=== PATIENT | female | born 1950 | race Caucasian/White ===

== ENCOUNTER 2020-03-10 14:27 | Observation (INO) | payer OTHER, MEDICAID, SELFPAY ==
[~2020-03-10] VITALS: Ht 162.6 cm; Wt 65.3 kg
--- NOTE | 2020-03-10 14:30 | NUR ---
PT BIB ALS TO ER BED 1
--- NOTE | 2020-03-10 14:38 | NUR ---
DR JIMÉNEZ AT BEDSIDE EVALUATING PT.
--- NOTE | 2020-03-10 14:38 | NUR ---
HECTOR FROM [facility] FOR L FOOT PAIN/SWELLING , PT AWAKE , ALERT, AFIBRILE , PAIN ON LEFT FOOT UPON MOVEMENT. ORTHOPEDIC HARDWARE TO L FOOT PMH- HTN, DM, HLD, DE, SCHIZO, ANXIETY, SEIZURE, COPD, IBS,
[2020-03-10 14:40] VITALS: BP 147/79
--- NOTE | 2020-03-10 15:03 | NUR ---
JOANNA DENG AT BEDSIDE DOIN EKG.
--- NOTE | 2020-03-10 15:10 | NUR ---
XRAY AT BEDSIDE.
[2020-03-10] MEDS ORDERED: KETOROLAC 30 MG/ML VIAL IVP ONE (15:15)
--- NOTE | 2020-03-10 15:20 | NUR ---
PT COMFORTABLE IN BED SIDE RAILS UP X1 AND LOCK.
[2020-03-10 15:25] LABS: BASOPHILS # (AUTO) 0.1 K/uL (0.00-0.22); BASOPHILS % (AUTO) 0.6 % (0.0-2.0); EOSINOPHILS # (AUTO) 0.1 K/uL (0-0.4); EOSINOPHILS % (AUTO) 1.5 % (0.0-4.0); HEMATOCRIT 36.8 % (36-48); HEMOGLOBIN 12.3 g/dL (12.0-16.0); LYMPHOCYTES # (AUTO) 0.9 K/uL (2.5-16.5); LYMPHOCYTES % (AUTO) 9.7 % (20.5-51.1); MEAN CORPUSCULAR HEMOGLOBIN 30 pg (27-31); MEAN CORPUSCULAR HGB CONC 33 g/dL (33-37); MEAN CORPUSCULAR VOLUME 88.9 fL (80-94); MONOCYTES # (AUTO) 0.6 K/uL (0.8-1.0); MONOCYTES % (AUTO) 6.7 % (1.7-9.3); NEUTROPHILS # (AUTO) 7.6 K/uL (1.8-7.7); NEUTROPHILS % (AUTO) 81.5 % (42.2-75.2); PLATELET COUNT (AUTO) 295 K/uL (140-450); RED BLOOD CELL COUNT(AUTO) 4.14 MIL/uL (4.20-5.40); RED CELL DISTRIBUTION WIDTH 13.1 % (11.6-13.7); WHITE BLOOD COUNT (AUTO) 9.3 K/uL (4.8-10.8)
[2020-03-10 15:40] LABS: ALBUMIN 3.4 g/dL (3.4-5.0); ANION GAP 13.2 (8-16); CARBON DIOXIDE 26.9 mmol/L (21-32); POTASSIUM 4.1 mmol/L (3.5-5.1); TOTAL BILIRUBIN 0.3 mg/dL (0.0-1.0)
[2020-03-10] MEDS ORDERED: LEVOFLOXACIN 500 MG/D5W PREMIX 100 ML IV ONE (15:40)
[2020-03-10] MEDS ORDERED: GABA-636 PO (15:48)
[2020-03-10] MEDS ORDERED: QUET300T1 PO (15:51)
[2020-03-10] MEDS ORDERED: SERT25TA PO (15:53)
--- NOTE | 2020-03-10 15:53 | NUR ---
resident at bedside evaluating pt.
[2020-03-10] MEDS ORDERED: BUS5 PO (15:54)
[2020-03-10] MEDS ORDERED: OLME20TA11 PO (15:56)
[2020-03-10] MEDS ORDERED: ALEN70TA9 PO (15:58)
[2020-03-10] MEDS ORDERED: ATOR10TA PO (16:00)
[2020-03-10] MEDS ORDERED: LEVE250T1 PO (16:05)
[2020-03-10] MEDS ORDERED: ABI10 PO (16:07)
[2020-03-10] MEDS ORDERED: NACL 0.9% 1,000 ML IV SCH (16:09)
[2020-03-10] MEDS ORDERED: SITA100T8 PO (16:09)
[2020-03-10] MEDS ORDERED: HYDROcodone/APAP 5/325 MG 1 TAB TAB PO PRN (16:10)
[2020-03-10] MEDS ORDERED: VILA10TA PO (16:10)
[2020-03-10] MEDS ORDERED: ACETAMINOPHEN 325 MG TAB PO PRN (16:10)
[2020-03-10] MEDS ORDERED: DOCUSATE SODIUM 100 MG GELCAP PO PRN (16:10)
[2020-03-10] MEDS ORDERED: ONDANSETRON 4 MG/2 ML VIAL IM/IVP PRN (16:10)
[2020-03-10] MEDS ORDERED: LEVO0.124 PO (16:12)
[2020-03-10] MEDS ORDERED: LAM25 PO (16:15)
[2020-03-10 16:57] LABS: FREE T4 (FREE THYROXINE) 1.05 ng/dL (0.76-1.46); MAGNESIUM 1.8 mg/dL (1.8-2.4); PHOSPHORUS 3.8 mg/dL (2.5-4.9); THYROID STIMULATING HORMONE 2.53 uIU/mL (0.34-3.74)
[2020-03-10] MEDS ORDERED: MORPHINE SULFATE 4 MG/ML SYR IVP PRN (17:40)
[2020-03-10] MEDS ORDERED: ONDANSETRON 4 MG/2 ML VIAL IVP PRN (17:40)
--- NOTE | 2020-03-10 17:43 | NUR ---
PT COMFORTABLE IN BED WITH STABLE V/S , SIDE RAILS UP X1 AND LOCK.
[2020-03-10] MEDS ORDERED: DEXTROSE 50% 50 ML SYR IVP PRN (17:50)
[2020-03-10] MEDS ORDERED: CLINDAMYCIN 600 MG in DEXTROSE 5% 50 ML IV ONE (18:00)
--- NOTE | 2020-03-10 18:00 | NUR ---
PT SITTING IN BED COMFORTABLY EATING DINNER NO COMPLAINT AT THIS TIME.
--- NOTE | 2020-03-10 18:30 | NUR ---
RECEIVED PT FROM ER NURSE JOS EELIAS. PT IN STABLE CONDITION AT THIS TIME. WILL ENDORSE FOR ADMISSION TO SALES ORDER SPECIALIST.
--- NOTE | 2020-03-10 18:31 | NUR ---
Patient will be admitted to care of Dr Fernando. Admited to M/S. Will go to room 122B. Belongings list completed. Report to Malena Camacho.
[2020-03-10] MEDS: HYDROcodone/APAP 5/325 MG 1 TAB TAB PO PRN ×2 (18:47→21:24)
[2020-03-10 19:05] VITALS: BP 199/105
--- NOTE | 2020-03-10 19:05 | NUR ---
RECEIVED PATIENT FROM AM SHIFT NURSE FOR CONTINUITY OF CARE. REPORTED THAT PATIENT ARRIVED ON UNIT VIA GURNEY FROM ER. PATIENT ON ROOM AIR, WITH O2 STABLE AT THIS TIME. ALERT AND ORIENTED X4. NO CURRENT COMPLAINTS VOICED FROM PATIENT. IV RIGHT AC 20 GAUGE INTACT WITH ANTIBIOTIC INFUSING. PATIENT IN BED WITH SAFETY MEASURES IN PLACE. BED IN LOW POSITION AND CALL LIGHT WITHIN REACH
--- NOTE | 2020-03-10 20:35 | NUR ---
SPOKE TO DR LINDA WHO IS DOCTOR OF CHIROPRACTIC FOR DR VALE, PATIENT BLOOD PRESSURE ELEVATED AND INQUIRED ABOUT ORDERS, DR LINDA STATED HE WILL HAVE DR VALE PUT IN ORDERS FOR THIS PATIENT
--- NOTE | 2020-03-10 20:53 | NUR ---
SPOKE TO DR VALE, MADE AWARE ABOUT PATIENTS BP 199/105, DR STATED HE WILL DO ORDERS
[2020-03-10] MEDS: BLOOD GLUCOSE MONITORING 1 DEV DEV FS SCH (20:58)
[2020-03-10] MEDS ORDERED: cloNIDine 0.1 MG TAB PO PRN (21:05)
[2020-03-10 21:32] LABS: APPEARANCE,URINE CLEAR (CLEAR); BILIRUBIN,URINE NEGATIVE (NEGATIVE); BLOOD, URINE NEGATIVE (NEGATIVE); COLOR,URINE YELLOW (YELLOW); LEUKOCYTE ESTERASE ,URINE TRACE (NEGATIVE); NITRITE, URINE NEGATIVE (NEGATIVE); PH,URINE 5.5 (5.0-9.0); UGLUCOSE NEGATIVE (NEGATIVE)
[2020-03-10 23:25] VITALS: BP 155/85
--- NOTE | 2020-03-10 23:25 | NUR ---
BP RECHECKED RESULT 155/85,HR-64. PT IS RESTING WITH NO C/O ANY PAIN AT THIS TIME.
--- NOTE | 2020-03-10 23:59 | NUR ---
ASSISTED PATIENT TO THE RESTROOM, VOIDED, AND ASSISTED BACK TO BED, HOB ELEVATED, CALL LIGHT WITHIN REACH AND BED IN LOW POSITION. WILL CONTINUE TO MONITOR
--- NOTE | 2020-03-11 00:40 | NUR ---
SPOKE TO DR LINDA REGARDING ANTIBIOTIC ORDER FOR PATIENT, STATED NOT TO PUT IN ORDERS.
[2020-03-11] MEDS: HYDROcodone/APAP 5/325 MG 1 TAB TAB PO PRN ×5 (00:56→21:19)
--- NOTE | 2020-03-11 01:30 | NUR ---
PT ASSISTED UP TO THE BATHROOM. VOIDED. BACK TO BED WITH NO DISCOMFORT NOR PAIN NOTED.
--- NOTE | 2020-03-11 03:23 | NUR ---
PATIENT ASSISTED TO AND FROM THE RESTROOM, AND IS NOW LAYING DOWN RESTING. WILL CONTINUE TO MONITOR.
--- NOTE | 2020-03-11 05:30 | NUR ---
PATIENT AWAKE AND WATCHING TV, NO CURRENT COMPLAINTS VOICED. PATIENT SHOWS NO CURRENT S/S OF DISTRESS
[2020-03-11] MEDS: BLOOD GLUCOSE MONITORING 1 DEV DEV FS SCH ×4 (05:56→20:43)
[2020-03-11] MEDS: INSULIN LISPRO SLIDING SCALE 100 UNITS/ML VIAL SUBQ PRN ×2 (05:57→20:27)
[2020-03-11] MEDS: LEVOTHYROXINE 0.05 MG TAB PO SCH (06:00)
--- NOTE | 2020-03-11 06:25 | NUR ---
BLOOD GLUCOSE 160, COVERAGE NEEDED PER SLIDING SCALE.
--- NOTE | 2020-03-11 07:30 | NUR ---
REPORT GIVEN TO AM SHIFT NURSE FOR CONTINUITY OF CARE. PATIENT IN STABLE CONDITION AT THIS TIME
[2020-03-11 07:39] LABS: ALBUMIN 3.6 g/dL (3.4-5.0); CARBON DIOXIDE 27.6 mmol/L (21-32); CREATININE 0.9 mg/dL (0.6-1.3); POTASSIUM 3.6 mmol/L (3.5-5.1); TOTAL BILIRUBIN 0.3 mg/dL (0.0-1.0)
[2020-03-11 07:41] LABS: BASOPHILS % (AUTO) 0.3 % (0.0-2.0); EOSINOPHILS # (AUTO) 0.1 K/uL (0-0.4); EOSINOPHILS % (AUTO) 0.6 % (0.0-4.0); HEMATOCRIT 40.2 % (36-48); HEMOGLOBIN 13.7 g/dL (12.0-16.0); LYMPHOCYTES # (AUTO) 0.6 K/uL (2.5-16.5); LYMPHOCYTES % (AUTO) 6.8 % (20.5-51.1); MEAN CORPUSCULAR HEMOGLOBIN 30 pg (27-31); MEAN CORPUSCULAR HGB CONC 34 g/dL (33-37); MEAN CORPUSCULAR VOLUME 88.7 fL (80-94); MONOCYTES # (AUTO) 0.4 K/uL (0.8-1.0); NEUTROPHILS % (AUTO) 88.3 % (42.2-75.2); PLATELET COUNT (AUTO) 309 K/uL (140-450); RED BLOOD CELL COUNT(AUTO) 4.53 MIL/uL (4.20-5.40); RED CELL DISTRIBUTION WIDTH 13.1 % (11.6-13.7)
[2020-03-11 08:00] VITALS: BP 169/94
[2020-03-11] MEDS: busPIRone 5 MG TAB PO SCH ×2 (08:32→20:29)
[2020-03-11] MEDS: levETIRAcetam 500 MG TAB PO SCH (08:32)
[2020-03-11] MEDS: ARIPiprazole 10 MG TAB PO SCH (08:33)
[2020-03-11] MEDS: GABAPENTIN 100 MG CAP PO SCH ×3 (08:33→17:19)
[2020-03-11] MEDS: lamoTRIgine 25 MG TAB PO PRN ×2 (08:33→20:29)
[2020-03-11] MEDS: SERTRALINE 50 MG TAB PO SCH ×2 (08:33→20:30)
[2020-03-11] MEDS ORDERED: CRUSHER, PILL MC ONE (08:36)
--- NOTE | 2020-03-11 08:45 | NUR ---
ADMINISTERED MEDICATIONS PER ORDER AND TOLERATED WELL. PT STATES THAT SHE IS IN SEVERE PAIN AND FEEL NAUSEOUS. ZOFRAN HAS BEEN ADMINISTERED AND WILL ADMINISTER MORPHINE FOR 10/10 LEG PAIN. SAFETY MEASURES IN PLACE AND WILL CONTINUE TO MONITOR.
[2020-03-11] MEDS ORDERED: ENOXAPARIN 40 MG/0.4 ML SYR SUBQ SCH (09:00)
--- NOTE | 2020-03-11 09:17 | NUR ---
ADMINISTERED PAIN MEDICATION, MORPHINE FOR SEVERE FOOT PAIN. WILL REASSESS PAIN IN ONE HOUR, SAFETY MEASURES IN PLACE AND WILL CONTINUE TO MONITOR.
[2020-03-11] MEDS ORDERED: LOSARTAN 50 MG TAB PO SCH (09:45)
--- NOTE | 2020-03-11 10:16 | NUR ---
CALCULATOR OPERATOR JUST SPOKE TO PT AT BEDSIDE AND CHECK BLISTER ON LEFT FOOT. PT STATES THAT FOOT HURTS. SAFETY MEASURES IN PLACE AND WILL CONTINUE TO MONITOR.
[2020-03-11] MEDS ORDERED: DRY DRESSING TP PRN (11:35)
--- NOTE | 2020-03-11 11:42 | NUR ---
ULTRASOUND IS AT BEDSIDE. BLOOD GLUCOSE LEVEL 124 THEREFORE NO INSULIN COVERAGE IS NEEDED. SAFETY MEASURES IN PLACE AND WILL CONTINUE TO MONITOR.
--- NOTE | 2020-03-11 12:11 | NUR ---
ADMINISTERED MEDICATIONS PER ORDER AND TOLERATED WELL. PT VOIDED IN DEPEND AND HAS BEEN CHANGED. SAFETY MEASURES IN PLACE AND WILL CONTINUE TO MONITOR.
--- NOTE | 2020-03-11 13:10 | NUR ---
ADMINISTERED PAIN MEDICATION FOR MODERATE PAIN. PT FINISHED EATING LUNCH AND IS SITTING UP IN BED. SAFETY MEASURES IN PLACE AND WILL CONTINUE TO MONITOR.
[2020-03-11] MEDS ORDERED: LEVOFLOXACIN 250 MG/D5 PREMIX 50 ML IV SCH (15:00)
--- NOTE | 2020-03-11 15:08 | NUR ---
PT IS CURRENTLY LAYING IN BED WATCHING TV WITH NO SIGNS OF DISTRESS NOTED. SAFETY MEASURES IN PLACE AND WILL CONTINUE TO MONITOR.
[2020-03-11 16:00] VITALS: BP 184/91
[2020-03-11] MEDS ORDERED: CLINDAMYCIN 600 MG in DEXTROSE 5% 50 ML IV ONE (16:45)
--- NOTE | 2020-03-11 17:53 | NUR ---
PT WANTS MORE FOOD FOR DINNER. PT IS UNHAPPY WITH DINNER. PT PULLED OUT IV BECAUSE IT WAS BURNING HER. SAFETY MEASURES IN PLACE AND WILL CONTINUE TO MONITOR.
--- NOTE | 2020-03-11 18:30 | NUR ---
PER DR. HUDSON, PATIENT ABLE TO GO BACK TO [facility] TODAY IF TRANSPORT IS PROVIDED. NOTIFIED DR. HUDSON THAT NO CASE MANAGEMENT TODAY. PER DR. HUDSON, CALL [facility] CASE MANAGEMENT AT [phone] AND TALK TO CASE MANAGEMENT. CALLED [facility] AND SPOKE TO STEPHON RODRÍGUEZ. PER MARCOS, FAX OVER FACE SHEET, ORDERS, LABS, MEDICATIONS LIST AND THEN SHE WILL CALL [facility] AND WORK ON THE CASE. SHE WILL CALL US BACK ON ANY UPDATES.
[2020-03-11] MEDS ORDERED: CLINDAMYCIN PHOS 600MG/D5W PM 50 ML IV SCH (18:50)
[2020-03-11] MEDS ORDERED: CLINDAMYCIN 600 MG/4 ML VIAL ONE (18:53)
--- NOTE | 2020-03-11 19:00 | NUR ---
ULTRASOUND JUST CAME TO BEDSIDE, CHANGED DRESSING, PT COMPLAINS OF LEFT FOOT PAIN. ANTIBIOTICS WERE HUNG AND STARTED. SAFETY MEASURES IN PLACE AND WILL ENDORSE TO GEOSPATIAL INFORMATION SCIENTIST NURSE FOR CONTINUITY OF CARE.
--- NOTE | 2020-03-11 19:10 | NUR ---
RECEIVED PATIENT IN STABLE CONDITION FROM AM SHIFT NURSE FOR CONTINUITY OF CARE. RESPIRATIONS EVEN, UNLABORED. SKIN WARM, DRY. IV SITE NOTED TO RIGHT AC 20G PATENT/INTACT, INFUSING FLUIDS WELL. NO C/O PAIN. NO S/S ACUTE DISTRESS. CALL LIGHT WITHIN REACH. SAFETY PRECAUTIONS IN PLACE.
[2020-03-11] MEDS: ATORVASTATIN 20 MG TAB PO SCH (20:29)
[2020-03-11] MEDS: QUEtiapine FUMARATE 100 MG TAB PO SCH (20:29)
--- NOTE | 2020-03-11 21:19 | NUR ---
PATIENT C/O ACHING LEFT FOOT PAIN 03/08. MEDICATED ORDERED. CALL LIGHT WITHIN REACH.
--- NOTE | 2020-03-11 22:19 | NUR ---
REASSESSED PAIN LEVEL 2/10, TOLERABLE PAIN LEVEL FOR PATIENT. PATIENT WATCHING TV IN BED. NO S/S ACUTE DISTRESS. CALL LIGHT WITHIN REACH.
--- NOTE | 2020-03-11 23:37 | NUR ---
MADE ROUNDS. PATIENT IS ASLEEP AND IN STABLE CONDITION. NO S/S ACUTE DISTRESS. CALL LIGHT WITHIN REACH. SAFETY PRECAUTIONS IN PLACE.
[2020-03-12] VITALS: BP 128/78
--- NOTE | 2020-03-12 01:02 | NUR ---
PATIENT IS SLEEPING WELL. NO S/S ACUTE DISTRESS. CALL LIGHT WITHIN REACH.
--- NOTE | 2020-03-12 03:39 | NUR ---
PATIENT CONTINUES IN STABLE CONDITION. ASLEEP. NO S/S ACUTE DISTRESS. CALL LIGHT WITHIN REACH. SAFETY PRECAUTIONS IN PLACE.
[2020-03-12] MEDS ORDERED: CLINDAMYCIN 600 MG/4 ML VIAL ONE (04:53)
[2020-03-12] MEDS: CLINDAMYCIN 600 MG in DEXTROSE 5% 50 ML IV SCH ×3 (05:00→21:06)
[2020-03-12] MEDS: HYDROcodone/APAP 5/325 MG 1 TAB TAB PO PRN ×6 (05:01→21:27)
--- NOTE | 2020-03-12 05:01 | NUR ---
PATIENT C/O ACHING LEFT FOOT PAIN 04/07. MEDICATED ORDERED. CALL LIGHT WITHIN REACH. WILL CONTINUE TO MONITOR.
[2020-03-12] MEDS: LEVOTHYROXINE 0.05 MG TAB PO SCH (05:43)
[2020-03-12] MEDS: ACETAMINOPHEN 325 MG TAB PO PRN ×2 (05:49→23:14)
--- NOTE | 2020-03-12 05:49 | NUR ---
REASSESSED PAIN LEVEL, PATIENT STATED SHE HAD A PAIN LEVEL OF 3/10, INTOLERABLE PAIN LEVEL AND WOULD LIKE SOME TYLENOL. MEDICATED ORDERED. CALL LIGHT WITHIN REACH.
--- NOTE | 2020-03-12 06:15 | NUR ---
INCONTINENT CARE RENDERED WITH GROOVER AND TURNER AT BEDSIDE. NO S/S ACUTE DISTRESS. CALL LIGHT WITHIN REACH. SAFETY PRECAUTIONS IN PLACE.
[2020-03-12] MEDS: BLOOD GLUCOSE MONITORING 1 DEV DEV FS SCH ×4 (06:31→20:56)
--- NOTE | 2020-03-12 07:20 | NUR ---
RECEIVED PT FROM ENVIRONMENTAL CHANGE ANALYST NURSE. PT IS CURRENTLY AWAKE, ALERT AND SITTING UP IN BED. RESPIRATIONS ARE CLEAR, UNLABORED ON ROOM AIR. SKIN IS INTACT WITH LEFT FOOT DRESSING WRAPPED IN GAUZE, IV PATENT ASYMPTOMATIC AND INFUSING PER ORDER. PT DOES NOT SHOW ANY SIGNS OF DISTRESS OR COMPLAINTS OF PAIN. SAFETY MEASURES IN PLACE AND WILL CONTINUE TO MONITOR.
[2020-03-12 08:00] VITALS: BP 171/86
--- NOTE | 2020-03-12 08:25 | NUR ---
PATIENT HAS BEEN SCREENED AND CATEGORIZED MODERATE NUTRITION RISK. PATIENT WILL BE SEEN WITHIN 3-5 DAYS OF ADMISSION. 03/13/20 - 03/15/20 JOHNATHON NIX MBA, RD
[2020-03-12] MEDS: ARIPiprazole 10 MG TAB PO SCH (09:11)
[2020-03-12] MEDS: levETIRAcetam 500 MG TAB PO SCH (09:12)
[2020-03-12] MEDS: LOSARTAN 50 MG TAB PO SCH (09:12)
[2020-03-12] MEDS: SERTRALINE 50 MG TAB PO SCH ×2 (09:12→21:04)
[2020-03-12] MEDS: GABAPENTIN 100 MG CAP PO SCH ×3 (09:13→17:53)
[2020-03-12] MEDS: lamoTRIgine 25 MG TAB PO PRN (09:13)
[2020-03-12] MEDS: busPIRone 5 MG TAB PO SCH ×2 (09:13→21:02)
[2020-03-12] MEDS: ENOXAPARIN 30 MG/0.3 ML SYR SUBQ SCH (09:18)
--- NOTE | 2020-03-12 09:19 | NUR ---
ADMINISTERED MEDICATIONS PER ORDER AND TOLERATED WELL. PT STATES THAT SHE IS IN 7/10 LEFT FOOT PAIN. NORCO WAS ADMINISTERED FOR PAIN MEDICATION. SAFETY MEASURES IN PLACE AND WILL CONTINUE TO MONITOR.
--- NOTE | 2020-03-12 10:21 | NUR ---
CASE MANAGEMENT CALLED REGARDING PTS DISCHARGE. WILL FOLLOW UP WITH [facility] TO COORDINATE DISCHARGE. PT IS CURRENTLY SITTING UP IN BED WATCHING TV WITH NO SIGNS OF DISTRESS SAFETY MEASURES IN PLACE AND WILL CONTINUE TO MONITOR.
--- NOTE | 2020-03-12 11:00 | NUR ---
PT IV CAME OUT WHEN SHE WAS TRYING TO TAKE OFF HER SWEATER. WILL REINSERT NEW IV. SAFETY MEASURES IN PLACE AND WILL CONTINUE TO MONITOR.
--- NOTE | 2020-03-12 12:50 | NUR ---
Attempted to insert peripheral IV, pt is hard stick and unable to place IV access after multiple attempts. Dr Gonzalez notified with order for PICC/midline IV insertion for IV antibiotics after discharge to SNF.
--- NOTE | 2020-03-12 13:25 | NUR ---
ADMINISTERED MEDICATIONS PER ORDER AND TOLERATED WELL. PATIENT STATES PAIN LEVEL IS 7/10. PICC LINE CONSENT HAS BEEN SIGNED. SAFETY MEASURES IN PLACE AND WILL CONTINUE TO MONITOR.
--- NOTE | 2020-03-12 13:53 | NUR ---
Called PICC nurse per physician order. Sherine PICC nurse to call back with
--- NOTE | 2020-03-12 15:03 | NUR ---
PT IS CURRENTLY SITTING UP IN BED WATCHING TV WITH NO SIGNS OF DISTRESS OR COMPLAINTS OF PAIN. PICC LINE NURSE HAS CALLED AND STATED THAT SHE WILL ARRIVE BY 5PM TODAY. SAFETY MEASURES IN PLACE AN WILL CONTINUE TO MONITOR.
--- NOTE | 2020-03-12 15:25 | NUR ---
DISCHARGE PLAN: JAYE FAXED CLINICALS TO [facility]. SW PROVIDED NURSING STATION PHONE NUMBER ON FACE SHEET.
[2020-03-12 16:00] VITALS: BP 157/82
--- NOTE | 2020-03-12 16:35 | NUR ---
BLOOD GLUCOSE IS 108 THEREFORE NO INSULIN COVERAGE IS NEEDED AT THIS TIME. PT DOES NOT COMPLAIN OF ANY PAIN ATV THIS TIME. SAFETY MEASURES IN PLACE AND WILL CONTINUE TO MONITOR.
--- NOTE | 2020-03-12 17:53 | NUR ---
ADMINISTERED MEDICATIONS PER ORDER AND TOLERATED WELL. PICC LINE NURSE HAS JUST ARRIVED. SAFETY MEASURES IN PLACE AND WILL CONTINUE TO MONITOR.
--- NOTE | 2020-03-12 18:25 | NUR ---
PICC LINE NURSE JUST LEFT BEDSIDE. PICC LINE HAS BEEN INSERTED SUCCESSFULLY. PT STATES THAT SHE NEEDS TO BE CHANGED. SAFETY MEASURES IN PLACE AND WILL CONTINUE TO MONITOR.
--- NOTE | 2020-03-12 19:01 | NUR ---
PT IS SITTING IN BED WATCHING TV WITH NO SIGNS OF DISTRESS. WILL ENDORSE TO ACCOUNTS PAYABLES CLERK NURSE FOR CONTINUITY OF CARE.
--- NOTE | 2020-03-12 19:15 | NUR ---
RECEIVED REPORT FROM DAY SHIFT NURSE. PT IS A&O X 4 AND SITTING UPRIGHT IN BED WATCHING TV. PT IS ON RA AND BREATHING IS EVEN AND UNLABORED. THERE ARE NO SIGNS OF DISTRESS. BED IS IN LOWEST POSITION AND CALL LIGHT IS WITHIN REACH. SKIN IS WARM AND DRY. MIDLINE IS IN THE RIGHT ARM AND IS PATENT AND INTACT. WILL CONTINUE TO MONITOR.
--- NOTE | 2020-03-12 21:00 | NUR ---
CALLED BY LAB REGARDING ORDER FOR COVID UNCOLLECTED; WHO PUT IN THE ORDER WAS DR. CORONA LAST MARCH 10, UNDER DR. GERONIMO'S GROUP. BUT PT IS UNDER THE SERVICE OF DR. LOPEZ. IT WAS THE WRONG WHO PUT IN THE ORDER. WILL INFORM THE TMRW AM WHO PUT IN THE ORDER AND CLARIFY THE ORDER.
[2020-03-12] MEDS: QUEtiapine FUMARATE 100 MG TAB PO SCH (21:01)
[2020-03-12] MEDS: ATORVASTATIN 20 MG TAB PO SCH (21:02)
--- NOTE | 2020-03-12 21:30 | NUR ---
PPT IS LAYING SEMI FOWLERS RESTING AND WATCHING TV. COMPLAINT OF PAIN ON A SCALE OF 6 OUT OF 10. PATIENT WAS GIVEN NORCO 325 MG. MEDICATION EDUCATION WAS PROVIDED AND PT TOLERATED MEDICATION WELL. BLANKET WAS PROVIDED FOR COMFORT. WILL REASSESS PAIN WITHIN THE HOUR.
--- NOTE | 2020-03-12 23:00 | NUR ---
PT STATED SHE WAS HUNGRY AND WANTED A SNACK BEFORE BED. SHE WAS GIVEN A PUDDING AND PT STATED SHE WAS SATISFIED.
--- NOTE | 2020-03-12 23:12 | NUR ---
PT STATED MILD PAIN OF 4/4 STILL AFTER THE NORCO WAS GIVEN. PT SAID IT WAS A MILD ACHING PAIN IN HER LEFT FOOT R/T CELLULITIS. PT WAS ASSESSED AND GIVEN TYLENOL 650 MG. WILL REASSESS WITHIN THE HOUR.
--- NOTE | 2020-03-13 | NUR ---
PT REFUSED TO HAVE VS TAKEN. PT STATED SHE WAS TOO TIRED AND DIDN'T WANT TO BE DISTURBED. PT DENIES PAIN AND IS IN STABLE CONDITION. CHEST RISE IS SYMMETRICAL AND BREATHING IS UNLABORED.
--- NOTE | 2020-03-13 02:00 | NUR ---
CLYNDOMYCIN PIGGYBACK WAS FINISHED AND DISCONTINUED PER ORDER. PATIENT IS SLEEPING IN A SEMI FOWLERS POSITION. PATIENT IS IN STABLE CONDITION.
[2020-03-13] MEDS: ACETAMINOPHEN 325 MG TAB PO PRN (04:06)
--- NOTE | 2020-03-13 04:06 | NUR ---
PT STATED MILD PAIN 3/10. ACHING PAIN IN HER LEFT FOOT. PATIENT WAS GIVEN TYLENOL 650 MG. MEDICATION EDUCATION WAS PROVIDED. PATIENT VERBALIZED UNDERSTANDING. WILL MONITOR PAIN ASSESSMENT WITHIN THE HOUR.
[2020-03-13] MEDS: CLINDAMYCIN 600 MG in DEXTROSE 5% 50 ML IV SCH ×2 (04:39→13:26)
--- NOTE | 2020-03-13 05:01 | NUR ---
PT REFUSED BLOOD SUGAR CHECK. PT STATED SHE WANTED TO SLEEP. SHE IS IN STABLE CONDITION AND NO SIGNS OF DISTRESS.
--- NOTE | 2020-03-13 05:35 | NUR ---
PT'S BLOOD SUGAR WAS TAKEN AND THE READING WAS 131. NO INSULIN COVERAGE WAS NEEDED. PT'S SOILED LINENS WERE ALSO CHANGED. PT WAS PROVIDED TWO WARM BLANKETS FOR COMFORT. PT IS STABLE AND NO SLEEPING.
[2020-03-13] MEDS: LEVOTHYROXINE 0.05 MG TAB PO SCH (05:37)
[2020-03-13] MEDS: BLOOD GLUCOSE MONITORING 1 DEV DEV FS SCH ×2 (05:44→11:42)
--- NOTE | 2020-03-13 07:18 | NUR ---
PT WAS ENDORSED TO DAY SHIFT NURSE FOR CONTINUITY OF CARE.
--- NOTE | 2020-03-13 07:19 | NUR ---
RECEIVED REPORT FROM MARKET DEVELOPER NURSE ANAMARIA-LUCIUS. PT RESTING IN BED, AOX4, ON ROOM AIR WITH MIDLINE RIGHT ARM/SL. PT NON-WEIGHT BEARING USES BEDPAN. LEFT ARM RESTRICTED. LEFT FOOD CELLULITIS WRAPPED IN DRESSING. DISCUSSED PLAN OF CARE AND PT VERBALIZED UNDERSTANDING. CALL LIGHT WITHIN REACH. NO S/S OF RESPIRATORY DISTRESS OR DISCOMFORT NOTED AT THIS TIME. WILL CONTINUE TO MONITOR.
[2020-03-13 08:00] VITALS: BP 189/100
[2020-03-13] MEDS: GABAPENTIN 100 MG CAP PO SCH ×2 (08:13→13:26)
[2020-03-13] MEDS: ARIPiprazole 10 MG TAB PO SCH (08:13)
[2020-03-13] MEDS: SERTRALINE 50 MG TAB PO SCH (08:14)
[2020-03-13] MEDS: LOSARTAN 50 MG TAB PO SCH (08:14)
[2020-03-13] MEDS: lamoTRIgine 25 MG TAB PO PRN (08:14)
[2020-03-13] MEDS: busPIRone 5 MG TAB PO SCH (08:14)
[2020-03-13] MEDS: levETIRAcetam 500 MG TAB PO SCH (08:15)
[2020-03-13] MEDS: ENOXAPARIN 30 MG/0.3 ML SYR SUBQ SCH (08:16)
--- NOTE | 2020-03-13 08:16 | NUR ---
SCHEDULED MEDICATION GIVEN AND TOLERATED WELL. CALL LIGHT WITHIN REACH. NO S/S OF RESPIRATORY DISTRESS OR DISCOMFORT NOTED AT THIS TIME. WILL CONTINUE TO MONITOR.
[2020-03-13] MEDS: HYDROcodone/APAP 5/325 MG 1 TAB TAB PO PRN ×2 (09:07→13:26)
--- NOTE | 2020-03-13 09:07 | NUR ---
PT C/O PAIN 03/08 AND NORCO GIVEN FOR PAIN. PT TOLERATED WELL. CALL LIGHT WITHIN REACH. NO S/S OF RESPIRATORY DISTRESS OR DISCOMFORT NOTED AT THIS TIME. WILL CONTINUE TO MONITOR.
--- NOTE | 2020-03-13 11:30 | NUR ---
BLOOD GLUCOSE 145- NO NEED FOR INSULIN COVERAGE.
--- NOTE | 2020-03-13 13:14 | NUR ---
SPOKE TO CEASAR AT [facility] SHE SET UP TRANSPORTATION FOR PATIENT WITH [facility]. OMARIERE WILL BE HERE AT 3:00 PM TO RING STRIKER PATIENT. NOTIFIED JOSE FRANCISCO AT [facility] AND LUCIUS. Addendum: 03/13/20 at 1320 by Carlotta Lal CM PATIENT WILL BE GOING TO ROOM [facility] B
--- NOTE | 2020-03-13 13:26 | NUR ---
SCHEUDLED MEDICATION NEURONTIN AN CLEOCIN GIVEN AND TOLERATED WELL. PT C/O OF PAIN 03/08NORCO AND GIVEN. PT TOLERATED WELL. CALL LIGHT WITHIN REACH. NO S/S OF RESPIRATORY DISTRESS OR DISCOMFORT NOTED AT THIS TIME. WILL CONTINUE TO MONITOR.
[2020-03-13 14:00] VITALS: BP 153/61
--- NOTE | 2020-03-13 15:00 | NUR ---
D/C PAPERWORK SIGNED BY PT. AWAITING [facility] FOR PICKUP AND TRANSFER TO [facility].
--- NOTE | 2020-03-13 15:23 | NUR ---
PT WAS TRANSPORTED BY [facility] BACK TO [facility]. PT STABLE AT THIS TIME.
== END 2020-03-13 15:25 ==
LOC: MED 14:27 → EEVIPCON 17:44 → MTU 17:44
PROVIDERS: ADMIT Hospitalist; ATTEND Hospitalist
DX: L03.116 Cellulitis of left lower limb (principal); E11.9 Type 2 diabetes mellitus without complications; E78.5 Hyperlipidemia, unspecified; F20.9 Schizophrenia, unspecified; F41.9 Anxiety disorder, unspecified; G40.909 Epilepsy, unspecified, not intractable, without status epilepticus; I10 Essential (primary) hypertension; I25.10 Atherosclerotic heart disease of native coronary artery without angina pectoris; I25.2 Old myocardial infarction; J44.9 Chronic obstructive pulmonary disease, unspecified; Z87.891 Personal history of nicotine dependence; Z87.81 Personal history of (healed) traumatic fracture; G89.4 Chronic pain syndrome; Z79.899 Other long term (current) drug therapy; Z88.0 Allergy status to penicillin; Z88.2 Allergy status to sulfonamides
CPT/HCPCS: 36415; 73630; 76881; 76937; 80053; 81003; 82948; 83036; 83605; 83735; 83880; 84100; 84439; 84443; 85025; 85610; 85730; 87070; 87081; 87086; 87186; 87205; 93005; 93925; 96365; 96366; 96367; 96372; 96375; 99285; C1751; G0378; J1650; J1885; J1956; J2270; J2405; J3490; J7030; J7060; Q0092; 87075

== ENCOUNTER 2021-03-13 18:38 | Emergency (ER) | payer OTHER, MEDICAID ==
[~2021-03-13] VITALS: Ht 160 cm; Wt 90.7 kg
[2021-03-13 18:38] VITALS: BP 154/76
[~2021-03-13 18:38] MED LIST: ABI10 PO; ATOR10TA PO; BUS5 PO; FOS70 PO; GABA-636 PO; LAM25 PO; LEVE250T1 PO; LEVO0.124 PO; OLME20TA11 PO; QUET300T1 PO; SERT25TA PO; SITA100T8 PO; VILA10TA PO
[2021-03-13] MEDS ORDERED: KETOROLAC 30 MG/ML VIAL IM ONE (19:20)
[2021-03-13] MEDS ORDERED: NAPR-1704 PO (19:39)
[2021-03-13] MEDS ORDERED: ALBUTEROL SULFATE/IPRATROPIU 3 ML SOL IH ONE (21:00)
[2021-03-13] MEDS ORDERED: fentaNYL citrate 0.05 MG/ML VIAL IM ONE (22:30)
[2021-03-14] MEDS ORDERED: HYDROcodone/APAP 5/325 MG 1 TAB TAB PO ONE ×2 (01:25→07:10)
[2021-03-14] MEDS ORDERED: QUEtiapine FUMARATE 100 MG TAB PO ONE (01:25)
[2021-03-14] MEDS ORDERED: QUEtiapine FUMARATE 25 MG TAB ONE (01:34)
[2021-03-14] MEDS ORDERED: levETIRAcetam 500 MG TAB PO ONE (07:10)
[2021-03-14] MEDS ORDERED: PROMETH/CODEINE 6.25-10MG/5ML 5 ML UDC PO ONE ×2 (07:10)
[2021-03-14 10:16] VITALS: BP 147/78
== END 2021-03-14 10:17 ==
LOC: MED 18:38
DX: S93.401A Sprain of unspecified ligament of right ankle, initial encounter (principal); M25.561 Pain in right knee; R05 Cough; J44.9 Chronic obstructive pulmonary disease, unspecified; E11.9 Type 2 diabetes mellitus without complications; I10 Essential (primary) hypertension; I25.2 Old myocardial infarction; G40.909 Epilepsy, unspecified, not intractable, without status epilepticus; F32.9 Major depressive disorder, single episode, unspecified; Z88.0 Allergy status to penicillin; Z79.899 Other long term (current) drug therapy; Z98.890 Other specified postprocedural states; W19.XXXA Unspecified fall, initial encounter; Y93.89 Activity, other specified; Y92.091 Bathroom in other non-institutional residence as the place of occurrence of the external cause; Y99.8 Other external cause status
CPT/HCPCS: 29515; 71045; 73610; 94640; 96372; 99285; J1885; J3010; Q0163

== ENCOUNTER 2022-05-09 15:43 | Inpatient (IN) | payer OTHER, MEDICAID ==
[~2022-05-09] VITALS: Ht 157.5 cm; Wt 40.8 kg
[~2022-05-09 15:43] MED LIST changes: +NAPR-1704 PO
[2022-05-09 15:53] VITALS: BP 126/78
--- NOTE | 2022-05-09 16:18 | NUR ---
LESILE SWAB COLLECTED AND HANDED TO PHARMACEUTICAL WORKER
[2022-05-09] MEDS ORDERED: NITROGLYCERIN 0.4 MG TAB SL ONE (16:20)
[2022-05-09] MEDS ORDERED: NITROGLYCERIN 2% 1 GM PKT TP ONE (16:20)
[2022-05-09 16:23] LABS: BASOPHILS % (AUTO) 0.4 % (0.0-2.0); EOSINOPHILS # (AUTO) 0.1 K/uL (0-0.4); EOSINOPHILS % (AUTO) 0.9 % (0.0-4.0); HEMATOCRIT 29.5 % (36-48); HEMOGLOBIN 9.7 g/dL (12.0-16.0); LYMPHOCYTES # (AUTO) 0.8 K/uL (2.5-16.5); LYMPHOCYTES % (AUTO) 11.3 % (20.5-51.1); MEAN CORPUSCULAR HEMOGLOBIN 28 pg (27-31); MEAN CORPUSCULAR HGB CONC 33 g/dL (33-37); MONOCYTES # (AUTO) 0.8 K/uL (0.8-1.0); NEUTROPHILS # (AUTO) 5.8 K/uL (1.8-7.7); NEUTROPHILS % (AUTO) 77.4 % (42.2-75.2); PLATELET COUNT (AUTO) 577 K/uL (140-450); RED BLOOD CELL COUNT(AUTO) 3.47 MIL/uL (4.20-5.40); RED CELL DISTRIBUTION WIDTH 16.6 % (11.6-13.7); WHITE BLOOD COUNT (AUTO) 7.5 K/uL (4.8-10.8)
[2022-05-09] MEDS ORDERED: NACL 0.9% 500 ML IV ONE (16:40)
[2022-05-09 16:41] LABS: ALBUMIN 3.3 g/dL (3.4-5.0); ANION GAP 9.1 (8-16); ASPARTATE AMINOTRANSFERASE 9 U/L (15-37); CARBON DIOXIDE 30.2 mmol/L (21-32); CHLORIDE 95 mmol/L (98-107); CREATININE 0.9 mg/dL (0.6-1.3); GLUCOSE 129 mg/dL (74-106); POTASSIUM 4.3 mmol/L (3.5-5.1); SODIUM SERUM 130 mmol/L (136-145); TOTAL BILIRUBIN 0.3 mg/dL (0.0-1.0); UREA NITROGEN, BLOOD 11 mg/dL (7-18)
[2022-05-09 16:43] LABS: PROTHROMBIN TIME 10.3 secs (10.8-13.4)
--- NOTE | 2022-05-09 16:58 | NUR ---
Patient noted to have existing wounds upon arrival to ER. Photos taken of wound and placed in chart. Wound covered with dressing. Physician informed.
--- NOTE | 2022-05-09 17:00 | NUR ---
PATIENT STATING SHE NEEDED TO VOID, ASSISTED ONTO BED NEIL. PATIENT UNABLE TO VOID AT THIS TIME.
--- NOTE | 2022-05-09 17:00 | NUR ---
72/F BIBA FROM HOME. PER EMS PATIENT C/O 8/10 CHEST PAIN X30 MIN PRIOR TO CALLING 911. PATIENT STATES SHE USUALLY TAKES NITRO WHEN SHE EXPERIENCES THIS TYPE OF CHEST PAIN BUT REPORTS SHE RAN OUT OF HER NITRO 1 MONTH AGO. DENIES SOB, HEADACHE, DIZZINESS, N/V/D.
--- NOTE | 2022-05-09 17:25 | NUR ---
PATIENT WET HERSELF, PATIENT PLACED IN CLEAN GOWN, SHEETS AND BLANKETS CHANGED. PATIENT PLACED IN A POSITION OF COMFORT, ON BEDSIDE CALL CENTRE SUPERVISOR. ALL NEEDS MET AT THIS TIME.
[2022-05-09] MEDS ORDERED: MORPHINE SULFATE 2 MG/ML SYR IVP PRN (18:00)
[2022-05-09] MEDS ORDERED: ONDANSETRON 4 MG/2 ML VIAL IVP PRN (18:00)
[2022-05-09] MEDS ORDERED: ACETAMINOPHEN 325 MG TAB PO PRN (18:00)
[2022-05-09] MEDS ORDERED: DEXTROSE 50% 50 ML SYR IVP PRN (18:05)
[2022-05-09] MEDS ORDERED: POTASSIUM CHLORIDE 10 MEQ TABER PO PRN (18:05)
[2022-05-09] MEDS ORDERED: DOCUSATE SODIUM 100 MG GELCAP PO PRN (18:05)
[2022-05-09] MEDS ORDERED: levETIRAcetam 500 MG TAB PO SCH (18:15)
--- NOTE | 2022-05-09 18:30 | NUR ---
700CC OF YELLOW CLOUDY URINE EMPTIED FROM WILLOUGHBY BAG
--- NOTE | 2022-05-09 19:33 | NUR ---
Pt report given to LUCIUS SAUCEDO. Transfer of care at this time.
--- NOTE | 2022-05-09 19:57 | NUR ---
Pt refusing blood draws
[2022-05-09] MEDS: BLOOD GLUCOSE MONITORING 1 DEV DEV FS SCH (20:18)
[2022-05-09] MEDS: INSULIN LISPRO SLIDING SCALE 100 UNITS/ML VIAL SUBQ PRN (20:19)
[2022-05-09] MEDS ORDERED: CRUSHER, PILL MC ONE (20:22)
[2022-05-09] MEDS: QUEtiapine FUMARATE 100 MG TAB PO SCH (20:24)
[2022-05-09] MEDS: METOPROLOL 25 MG TAB PO SCH (20:25)
[2022-05-09] MEDS: ATORVASTATIN 20 MG TAB PO SCH (20:27)
--- NOTE | 2022-05-09 20:45 | NUR ---
PT GIVEN MEAL TRAY
--- NOTE | 2022-05-09 22:35 | NUR ---
Patient will be admitted to care of DR. EUBANKS. Admited to TELE. Will go to room 121A. Belongings list completed. Report to JOCELINE KAN.
--- NOTE | 2022-05-09 23:00 | NUR ---
RECEIVED REPORT FROM SHERYL DELEON RN FOR CONTINUITY OF CARE. PT ARRIVED ON UNIT VIA GURNEY TRANSFERRED TO BED WITH 1 PERSON ASSIST. PT IS STABLE IN BED. A&OX2. PT IS [place] AND VISUALLY IMPAIRED. GLASSES AT HOME. DENIES PAIN AT THIS TIME. ON RM AIR/O2 WITH NO ACUTE DISTRESS. RR EVEN AND UNLABORED WITH EQUAL CHEST RISE. GI INTACT. PT'S SKIN NOT INTACT. IV RAC 20G INTACT, FLUSHED AND PATENT. PRESSURE WOUND TO SACRAL /COCCYX AREA PICTURE IN CHART. WD ESTHER CLEAN AND DRY. PT IS ON BEDREST. F/C IN PLACE. INSERTED IN ER. PT IS INCONTINENT OF URINE AND BOWEL. ALL SAFETY MEASURES IN PLACE. BED IN LOW AND LOCKED POSITION. CALL LIGHT WITHIN REACH. WILL CONTINUE TO MONITOR.
[2022-05-10] MEDS ORDERED: MAG SULF 2000 MG/WATER PREMIX 50 ML IV PRN
[2022-05-10] MEDS: NITROGLYCERIN 0.4 MG TAB SL PRN ×2 (02:26→02:34)
--- NOTE | 2022-05-10 02:26 | NUR ---
PT C/O CHEST PAIN 05/08 RECEIVED NITROSTAT 0.4MG SL. AT 0234 PT STILL HAVING CHEST PAIN NOW 03/08. RECEIVED ANOTHER NITRO 0.4MG SL. WILL CONTINUE TO MONITOR PATIENT.
--- NOTE | 2022-05-10 02:45 | NUR ---
DENIES CHEST PAIN NOW BUT CAN'T SLEEP. AMBIEN 10MG PO GIVEN WITH MODERATE RELIEF AFTER 20 MINUTES. DOZING BUT EASILY AWAKENED. WILL CONTINUE WITH FREQ ROUNDS.
[2022-05-10] MEDS: ZOLPIDEM 10 MG TAB PO PRN ×2 (02:46→20:43)
[2022-05-10] MEDS: BLOOD GLUCOSE MONITORING 1 DEV DEV FS SCH ×4 (06:09→20:52)
--- NOTE | 2022-05-10 06:10 | NUR ---
BS= 157 COVERED WITH 2 UNITS HUMALOG INSULIN. SYNTHROID O.125MG GIVEN PO FOR HYPOTHYROIDISM. "I'M TIRED . I JUST WANT TO SLEEP. ASK QUESTIONS LATER." WILL CONTINUE WITH JAZMYNE KURTZ.
[2022-05-10] MEDS: INSULIN LISPRO SLIDING SCALE 100 UNITS/ML VIAL SUBQ PRN ×3 (06:11→20:54)
[2022-05-10] MEDS: LEVOTHYROXINE 0.025 MG TAB PO SCH (06:15)
[2022-05-10 06:18] LABS: BASOPHILS % (AUTO) 0.5 % (0.0-2.0); EOSINOPHILS # (AUTO) 0.1 K/uL (0-0.4); EOSINOPHILS % (AUTO) 1.3 % (0.0-4.0); HEMATOCRIT 24.7 % (36-48); HEMOGLOBIN 8.3 g/dL (12.0-16.0); LYMPHOCYTES # (AUTO) 0.7 K/uL (2.5-16.5); LYMPHOCYTES % (AUTO) 11.3 % (20.5-51.1); MEAN CORPUSCULAR HEMOGLOBIN 29 pg (27-31); MEAN CORPUSCULAR HGB CONC 34 g/dL (33-37); MEAN CORPUSCULAR VOLUME 85.1 fL (80-94); MONOCYTES # (AUTO) 0.7 K/uL (0.8-1.0); MONOCYTES % (AUTO) 12.1 % (1.7-9.3); NEUTROPHILS # (AUTO) 4.4 K/uL (1.8-7.7); NEUTROPHILS % (AUTO) 74.8 % (42.2-75.2); PLATELET COUNT (AUTO) 432 K/uL (140-450); RED CELL DISTRIBUTION WIDTH 16.3 % (11.6-13.7); WHITE BLOOD COUNT (AUTO) 5.9 K/uL (4.8-10.8)
[2022-05-10 07:13] LABS: ANION GAP 12.8 (8-16); CARBON DIOXIDE 25.4 mmol/L (21-32); CHLORIDE 96 mmol/L (98-107); CREATININE 0.9 mg/dL (0.6-1.3); GLUCOSE 161 mg/dL (74-106); POTASSIUM 4.2 mmol/L (3.5-5.1); SODIUM SERUM 130 mmol/L (136-145); UREA NITROGEN, BLOOD 11 mg/dL (7-18)
--- NOTE | 2022-05-10 07:30 | NUR ---
ENDORSED PT REPORT TO AM NURSE FOR CONTINUITY OF CARE.PT STATES SHE IS ON KEPPRA BUT MED NOT ON EMAR. HAVE DAYSHIFT FOLLOW UP. PT IS STABLE RESTING EYES ARE CLOSED RR EVEN AND UNLABORED ON RM AIR/J1CRI=17%. ALL NEEDS MET THROUGHOUT THE SHIFT.
[2022-05-10 08:00] VITALS: BP 127/78
[2022-05-10] MEDS: ONDANSETRON 4 MG/2 ML VIAL IVP PRN ×2 (08:29→21:11)
--- NOTE | 2022-05-10 08:58 | NUR ---
PATIENT HAS BEEN SCREENED AND CATEGORIZED HIGH NUTRITION RISK. PATIENT WILL BE SEEN WITHIN 1-2 DAYS OF ADMISSION. REFERRAL RECEIVED FOR PRESSURE INJURY SHAMEKA LINDA RD
[2022-05-10] MEDS: METOPROLOL 25 MG TAB PO SCH ×2 (09:24→20:39)
[2022-05-10] MEDS: GABAPENTIN 100 MG CAP PO SCH ×3 (09:24→17:12)
[2022-05-10] MEDS: ARIPiprazole 10 MG TAB PO SCH (09:24)
[2022-05-10] MEDS: CLOPIDOGREL 75 MG TAB PO SCH (09:24)
[2022-05-10] MEDS: levETIRAcetam 500 MG TAB PO SCH (10:58)
[2022-05-10 12:00] VITALS: BP 119/81
[2022-05-10] MEDS: ACETAMINOPHEN 325 MG TAB PO PRN (15:04)
--- NOTE | 2022-05-10 15:11 | NUR ---
05/10/22 RD INITIAL ASSESSMENT COMPLETED PLEASE REFER TO NUTRITION ASSESSMENT UNDER CARE ACTIVITY FOR ESTIMATED NUTRITIONAL NEEDS. 1. RECOMMEND CCHO 60 GM + CARDIAC DIET TOLERATED 2. RECOMMEND GLUCERNA 1X/DAY + PROSOURCE BID FOR PRESSURE INJURY NUTRITION THERAPY -GLUCERNA TO PROVIDE: 220 KCAL AND 10 G PROTEIN, DAILY -PROSOURCE TO PROVIDE: 120 KCAL + 30 G OF PROTEIN, DAILY 3. MONITOR GI SYMPTOMS, PO INTAKE, AND NUTRITION-RELATED LAB VALUES 4. RD TO FOLLOW-UP 3-5 DAYS, MODERATE RISK REVIEWED BY SHAMEKA LINDA RD
[2022-05-10 16:00] VITALS: BP 93/74
[2022-05-10 20:00] VITALS: BP 127/72
--- NOTE | 2022-05-10 20:00 | NUR ---
RECEIVED REPORT FROM AM NURSE CLAUDIA GALE FOR CONTINUITY OF CARE. PT IS STABLE SITTING UP IN BED EATING DINNER.ONLY CONSUMED 25%. A&OX2 . DENIES PAIN AT THIS TIME. ON RM AIR/O2 WITH NO S/S OF ACUTE DISTRESS. RR EVENAND UNLABORED WITH EQUAL CHEST RISE. GI INTACT PT'S SKIN SACRAL PRESSURE ULCER WITH DRESSING D&I. PT IS OON VBEDREST AND INCONTINENT HAS A WILLOUGHBY CATHETER DRAINING CLEAR YELLOW URINE. ALL SAFETY MEASURES IN PLACE. CALL LIGHT WITHIN REACH.WILL CONTINUE TO MONITOR.
[2022-05-10] MEDS: ATORVASTATIN 20 MG TAB PO SCH (20:39)
[2022-05-10] MEDS: QUEtiapine FUMARATE 100 MG TAB PO SCH (20:42)
[2022-05-10] MEDS: MORPHINE SULFATE 2 MG/ML SYR IVP PRN (20:58)
--- NOTE | 2022-05-10 21:30 | NUR ---
HS MEDS GIVEN.AO=206 COVERED WITH 2 UNITS HUMALOG INSULIN PER SLIDING SCALE. AMBIEN 10MG GIVEN FOR SLEEP.AT 2208 PT RECEIVED MSO4 2MG IVP FOR ABDOMINAL PAIN. ABOUT 20MINUTES LATER PT WAS RUBBING HER STOMACH COMPLAINING "IT HURTS, MY STOMACH" THEN SHE HAD 50CC PROJECTILE EMESIS OVER THE FLOOR. "I FEEL BETTER." PT WAS GIVEN ZOFRAN IVP FOR NAUSEA. PT'S SKIN IS PALE BUT WARM. WILL CONTINUE WITH FREQ ROUNDS.
[2022-05-11 00:39] VITALS: BP 119/81
--- NOTE | 2022-05-11 03:00 | NUR ---
MG= 1.3L MAG RIDER 2000MG GIVEN IVPB PER PROTOCOL. AT [address] PRATHER BP LOW VS: BP-85/49, HR-98, RR-20, V9MOY=95% ON RM AIR,T-97.9 ON TELE SR W/ HR 65. AT 0350 RECEIVED NEW ORDER 2L NS BOLUS WIDE OPEN NOW. WILL ASSESS IN THE MORNING.
[2022-05-11] MEDS ORDERED: NACL 0.9% 1,000 ML IV SCH ×2 (04:05)
--- NOTE | 2022-05-11 05:30 | NUR ---
AFTER 1st LITER BOLUS NS, BP WENT UP 103/56. STARTED 2nd BOLUS AT 0630. BS= 119 NO INSULIN COVERAGE NEEDED.
[2022-05-11 06:07] VITALS: BP 103/56
[2022-05-11] MEDS: LEVOTHYROXINE 0.025 MG TAB PO SCH (06:21)
[2022-05-11] MEDS: BLOOD GLUCOSE MONITORING 1 DEV DEV FS SCH ×4 (06:22→21:06)
[2022-05-11 06:45] LABS: BASOPHILS % (AUTO) 0.5 % (0.0-2.0); EOSINOPHILS # (AUTO) 0.1 K/uL (0-0.4); EOSINOPHILS % (AUTO) 2.2 % (0.0-4.0); HEMATOCRIT 25.5 % (36-48); HEMOGLOBIN 8.4 g/dL (12.0-16.0); LYMPHOCYTES # (AUTO) 1.6 K/uL (2.5-16.5); LYMPHOCYTES % (AUTO) 29.3 % (20.5-51.1); MEAN CORPUSCULAR HEMOGLOBIN 28 pg (27-31); MEAN CORPUSCULAR HGB CONC 33 g/dL (33-37); MEAN CORPUSCULAR VOLUME 85.5 fL (80-94); MONOCYTES % (AUTO) 18.1 % (1.7-9.3); NEUTROPHILS # (AUTO) 2.8 K/uL (1.8-7.7); NEUTROPHILS % (AUTO) 49.9 % (42.2-75.2); PLATELET COUNT (AUTO) 420 K/uL (140-450); RED BLOOD CELL COUNT(AUTO) 2.98 MIL/uL (4.20-5.40); RED CELL DISTRIBUTION WIDTH 16.1 % (11.6-13.7); WHITE BLOOD COUNT (AUTO) 5.6 K/uL (4.8-10.8)
[2022-05-11 07:22] LABS: ANION GAP 11.3 (8-16); CARBON DIOXIDE 25.7 mmol/L (21-32); CHLORIDE 98 mmol/L (98-107); CREATININE 0.8 mg/dL (0.6-1.3); GLUCOSE 101 mg/dL (74-106); SODIUM SERUM 131 mmol/L (136-145); UREA NITROGEN, BLOOD 16 mg/dL (7-18)
--- NOTE | 2022-05-11 07:30 | NUR ---
ENDORSED REPORT TO AM NURSE BALJINDER FOR CONTINUITY OF CARE. 2ND NS BOLUS NOW FINISHED. RESTARTED MAG RIDER. HAS ANOTHER 20 MINUTES TO INFUSE. PT IS STABLE. ALL NEEDS MET THROUGHOUT THE SHIFT.
--- NOTE | 2022-05-11 07:31 | NUR ---
RECEIVED REPORT FORM MEDICAL FACILITIES SECTION DIRECTOR NURSE FOR CONTINUITY OF CARE. PT IS AWAKE, IN BED. RESPIRATIONS EVEN AND UNLABORED ON RA. NO DISTRESS NOTED. A&O2, WITH EPISODES OF CONFUSION AND FORGETFULNESS. PT ON TELE MONITOR. HAS WILLOUGHBY CATHETER, PATENT AND DRAINING WELL. IV SITE AT RFA 22G, SL. SACRAL PRESSURE ULCER COVERED WITH DRESSING. CALL LIGHT WITHIN REACH. SAFETY PRECAUTIONS IN PLACE. WILL CONTINUE TO MONITOR.
[2022-05-11 08:00] VITALS: BP 167/137
[2022-05-11] MEDS: ONDANSETRON 4 MG/2 ML VIAL IVP PRN (08:12)
[2022-05-11] MEDS: MORPHINE SULFATE 2 MG/ML SYR IVP PRN ×2 (08:12→23:42)
[2022-05-11] MEDS: ISOSORBIDE MONONITRATE 30 MG TABER PO SCH (08:26)
[2022-05-11] MEDS: CLOPIDOGREL 75 MG TAB PO SCH (08:27)
[2022-05-11] MEDS: ARIPiprazole 10 MG TAB PO SCH (08:27)
[2022-05-11] MEDS: levETIRAcetam 500 MG TAB PO SCH (08:27)
[2022-05-11] MEDS: METOPROLOL 25 MG TAB PO SCH ×2 (08:28→20:48)
[2022-05-11] MEDS: GABAPENTIN 100 MG CAP PO SCH ×3 (08:29→16:17)
--- NOTE | 2022-05-11 08:37 | NUR ---
ADMINISTER SCHEDULED MORNING MEDS. PT TEACHING ABOUT MEDS GIVEN. PT VERBALIZED UNDERSTANDING. PT COMPLAINED OF AGUDELO 10/10 AND FEELING OF VOMITING. PRN IV MEDS ADMINISTERED BY LUCIUS LUNDY. WILL CONTINUE TO MONITOR.
[2022-05-11 12:00] VITALS: BP 113/59
[2022-05-11] MEDS: SUMAtriptan succinate 50 MG TAB PO PRN (12:14)
--- NOTE | 2022-05-11 12:15 | NUR ---
PT STILL COMPLAINING OF AGUEDLO. PRN MED FOR AGUDELO ADMINISTERED. WILL CONTINUE TO MONITOR.
[2022-05-11 16:00] VITALS: BP 138/80
[2022-05-11] MEDS: ACETAMINOPHEN 325 MG TAB PO PRN (16:17)
--- NOTE | 2022-05-11 16:24 | NUR ---
ADMINISTERED SCHEDULED MED. PT COMPLAINED OF BACK PAIN 12/06. PT REQUESTED FOR TYLENOL. PT STATED THAT'S WHAT SHE WAS HOME AND IT WAS GIVING HER RELIEF. PRN PAIN MED ADMINISTERED.
--- NOTE | 2022-05-11 16:36 | NUR ---
BLOOD GLUCOSE CHECK DONE. BS 135. NO SLIDING SCALE INSULIN ADMINISTERED.
--- NOTE | 2022-05-11 19:25 | NUR ---
ENDORSED PT TO BULL WHEEL WORKER NURSE FOR CONTINUITY OF CARE. ALL NEEDS MET THROUGHOUT SHIFT. PT IS STABLE.
--- NOTE | 2022-05-11 19:35 | NUR ---
RECEIVED PT FROM AM NURSE FOR CONTINUITY OF CARE,PT IS STABLE
[2022-05-11 20:00] VITALS: BP 133/74
[2022-05-11] MEDS: ATORVASTATIN 20 MG TAB PO SCH (20:47)
[2022-05-11] MEDS: QUEtiapine FUMARATE 100 MG TAB PO SCH (20:48)
[2022-05-11] MEDS: ZOLPIDEM 10 MG TAB PO PRN (20:56)
[2022-05-11] MEDS: INSULIN LISPRO SLIDING SCALE 100 UNITS/ML VIAL SUBQ PRN (21:04)
--- NOTE | 2022-05-11 21:30 | NUR ---
ALL MEDS GIVEN ,NO ADVERSE REACTIONS NOTED
[2022-05-12] VITALS: BP 105/57
--- NOTE | 2022-05-12 01:15 | NUR ---
PATIENT ASLEEP, BREATHING EVEN AND UNLABORED,NO DISTRESS NOTED
[2022-05-12 04:00] VITALS: BP 147/79
[2022-05-12] MEDS: LEVOTHYROXINE 0.025 MG TAB PO SCH (06:35)
[2022-05-12] MEDS: BLOOD GLUCOSE MONITORING 1 DEV DEV FS SCH ×4 (07:02→20:44)
[2022-05-12 08:00] VITALS: BP 146/73
--- NOTE | 2022-05-12 08:00 | NUR ---
RECEIVED REPORT FROM DRAWER IN PLAIN LOOM FOR CONTINUITY OF CARE. PATIENT ALERT AWAKE ORIENTED WITH BOUTS OF CONFUSION. NOT IN ANY DISTRESS NOTED. COMPLAINED OF HEADACHE, ASKING FOR HER IMITREX. BED IN LOW POSITION. FALL RISK PROTOCOL OBSERVED. CALL LIGHT WITHIN REACH. NEEDS ATTENDED. WILL CONTINUE TO MONITOR.
[2022-05-12] MEDS: ISOSORBIDE MONONITRATE 30 MG TABER PO SCH (08:29)
[2022-05-12] MEDS: ARIPiprazole 10 MG TAB PO SCH (08:30)
[2022-05-12] MEDS: levETIRAcetam 500 MG TAB PO SCH (08:30)
[2022-05-12] MEDS: CLOPIDOGREL 75 MG TAB PO SCH (08:30)
[2022-05-12] MEDS: METOPROLOL 25 MG TAB PO SCH ×2 (08:31→20:34)
[2022-05-12] MEDS: SUMAtriptan succinate 50 MG TAB PO PRN (08:31)
[2022-05-12] MEDS: GABAPENTIN 100 MG CAP PO SCH ×3 (08:31→16:54)
--- NOTE | 2022-05-12 10:00 | NUR ---
SEEN BY DR. PRATHER WITH ORDER TO DOWNGRADE TO9 MED SURG AND REMOVE WILLOUGHBY CATHETER. WILL CONTINUE TO9 MONITOR.
--- NOTE | 2022-05-12 11:19 | NUR ---
WILLOUGHBY CATHETER REMOVED. WILL CONTINUE TO MONITOR.
[2022-05-12 16:00] VITALS: BP 142/88
--- NOTE | 2022-05-12 19:19 | NUR ---
REPORT GIVEN TO DANDY TENDER FOR CONTINUITY OF CARE. PATIENT IN STABLE CONDITION.
--- NOTE | 2022-05-12 19:25 | NUR ---
RECEIVED PT FROM AM NURSE FOR CONTINUITY OF CARE.PT IS STABLE
[2022-05-12] MEDS: ATORVASTATIN 20 MG TAB PO SCH (20:33)
[2022-05-12] MEDS: QUEtiapine FUMARATE 100 MG TAB PO SCH (20:34)
[2022-05-12] MEDS: NITROGLYCERIN 0.4 MG TAB SL PRN (20:41)
--- NOTE | 2022-05-12 20:41 | NUR ---
PATIENT COMPLAINED OF CHEST PAIN, NITROGLYCERIN 0.4 MG TABLET GIVEN SUBLINGUAL. PAIN RELIEVED AFTER FIVE MINUTES. VS WITHIN NORMAL LIMITS.BP 134/80 RI 76,02 SAT 99%
[2022-05-12] MEDS: INSULIN LISPRO SLIDING SCALE 100 UNITS/ML VIAL SUBQ PRN (20:43)
--- NOTE | 2022-05-12 21:30 | NUR ---
ALL SCHEDULED MEDICATIONS GIVEN,NO ADVERSE REACTIONS NOTED
[2022-05-12] MEDS: ZOLPIDEM 10 MG TAB PO PRN (22:42)
--- NOTE | 2022-05-13 02:09 | NUR ---
PATIENT ASLEEP,NO S/SX OF DISTRESS NOTED
[2022-05-13 04:00] VITALS: BP 140/68
[2022-05-13 05:42] LABS: BASOPHILS # (AUTO) 0.1 K/uL (0.00-0.22); BASOPHILS % (AUTO) 0.8 % (0.0-2.0); EOSINOPHILS # (AUTO) 0.1 K/uL (0-0.4); HEMATOCRIT 22.6 % (36-48); LYMPHOCYTES # (AUTO) 1.4 K/uL (2.5-16.5); LYMPHOCYTES % (AUTO) 21.1 % (20.5-51.1); MEAN CORPUSCULAR HEMOGLOBIN 29 pg (27-31); MEAN CORPUSCULAR HGB CONC 36 g/dL (33-37); MEAN CORPUSCULAR VOLUME 82.2 fL (80-94); MONOCYTES # (AUTO) 0.8 K/uL (0.8-1.0); MONOCYTES % (AUTO) 12.1 % (1.7-9.3); NEUTROPHILS # (AUTO) 4.3 K/uL (1.8-7.7); PLATELET COUNT (AUTO) 422 K/uL (140-450); RED BLOOD CELL COUNT(AUTO) 2.75 MIL/uL (4.20-5.40); WHITE BLOOD COUNT (AUTO) 6.8 K/uL (4.8-10.8)
[2022-05-13 05:53] LABS: ANION GAP 10.8 (8-16); CARBON DIOXIDE 26.2 mmol/L (21-32); CHLORIDE 95 mmol/L (98-107); CREATININE 0.7 mg/dL (0.6-1.3); GLUCOSE 116 mg/dL (74-106); SODIUM SERUM 128 mmol/L (136-145); UREA NITROGEN, BLOOD 10 mg/dL (7-18)
--- NOTE | 2022-05-13 06:00 | NUR ---
INSERTED A NEW IV ON PATIENT'S RIGHT ARM 24 G. PATENT AND INTACT
[2022-05-13] MEDS: LEVOTHYROXINE 0.025 MG TAB PO SCH (06:06)
[2022-05-13] MEDS: BLOOD GLUCOSE MONITORING 1 DEV DEV FS SCH ×3 (06:30→16:57)
--- NOTE | 2022-05-13 07:24 | NUR ---
ENDORSED PT TO AM NURSE FOR CONTINUITY OF CARE.PT IS STABLE
[2022-05-13] MEDS: CLOPIDOGREL 75 MG TAB PO SCH (09:31)
[2022-05-13] MEDS: GABAPENTIN 100 MG CAP PO SCH ×3 (09:32→16:58)
[2022-05-13] MEDS: levETIRAcetam 500 MG TAB PO SCH (09:32)
[2022-05-13] MEDS: METOPROLOL 25 MG TAB PO SCH (09:33)
[2022-05-13] MEDS: ARIPiprazole 10 MG TAB PO SCH (09:33)
[2022-05-13] MEDS: ISOSORBIDE MONONITRATE 30 MG TABER PO SCH (09:34)
[2022-05-13] MEDS: ACETAMINOPHEN 325 MG TAB PO PRN ×2 (09:45→15:26)
--- NOTE | 2022-05-13 09:55 | NUR ---
WOUND CARE EVALUATION NOTE: SKIN ASSESSMENT DONE WITH THIS 72 Y/O PT ADMITTED WITH INITIAL DX CHEST PAIN AND AMS. PAST MEDICAL HX INCLUDES PAST MEDICAL HISTORY BLADDER CANCER, SYSTEMIC LUPUS ERYTHEMATOSUS, HTN, HIGH CHOLESTEROL, CVA. PT ADMITTED WITH PRESSURE INJURY STAGE 4 TO SACRALCOCCYX. ALL ABOVE INFORMATION OBTAINED FROM ADMISSION H&P. PT IS AAX3, VERBALIZES NEEDS WITH FORGETFULNESS. SKIN IS WARM AND DRY, BLE NO HAIR GROWTH, NO1 EDEMA. DORSAL PEDAL PULSES PRESENT AND NORMAL. CAPILLARY REFILLED <2 SEC. X 10 TOES. PT. USE BEDSIDE COMMODE. POC DISCUSSED WITH PT. NEED REINFORCEMENT. PLAN OF CARE DISCUSSED WITH PRIMARY RN ROSCOE. INTEGUMENTARY: -LIPS AND ORAL MUCOSA DRY AND CLEAN. SKIN INTACT. -INCONTINENT ASSOCIATE DERMATITIS (IAD) TO: B/L GROINS, MEDIAL THIGHS SKIN MOIST AND RED, INTACT -PRESSURE ULCER INJURY STAGE 4, SACROCOCCYX 3X2X0.8CM, UNDERMINING FROM 9 OCLOCK TO 3 OCLOCK WITH DEEPEST TO 3CM, WOUND BED 100% RED GRANULATION TISSUE, MODERATE AMOUNT SEROUS .DRAINAGE, WOUND EDGE MOIST/WHITE MACERATION TISSUE, BRANDEN-WOUND SKIN MOIST SURROUNDING REDNESS INDICATED FURTHER DAMAGE. RECOMMENDATIONS: -CLEANSE WITH SOAP AND WATER, PAT DRY, APPLY THIN LAYER OF Z GUARD TO R/L GROINS AND MEDIAL THIGHS BID AND PRN IF SOILING -CLEANSE SACRALCOCCYX WOUND WITH WOUND CLEANSING SOLUTION, PACK WOUND FROM UNDERMINING WITH CALCIUM ALGINATE DRESSING AND APPLY Z-GUARD TO WOUND EDGE/BRANDEN WOUND SKIN AND COVER WITH FOAM DRESSING Q3D AND PRN IF SOILING -POSITIONING: TURN AND REPOSITION PATIENT Q 2H OR SOONER USE PILLOWS TO KEEP BONY PROMINENCES FROM DIRECT CONTACT WITH SURFACES USE REPOSITIONING WEDGES TO PROVIDE 30-DEGREE ANGLE FOR SIDE LYING POSITIONS OFFLOADING OR FOAM DRESSING TO ALL TUBING TO PREVENT MEDICAL DEVICES RELATED PRESSURE INJURY -RE-EVALUATING AND MANAGING INCONTINENCE MONITOR SKIN CONDITION DURING POSITION CHANGE DO NOT MASSAGE REDNESS, BONY PROMINENCES, DO NOT USE DONUT-TYPE DEVICES FREQUENT BRANDEN-CARE AND PROVIDE BARRIER CREAMS PRN IF SOILING MOISTURE CONTROL BY OFFER BED NEIL/URINAL /ABSORBENT PAD TO WICK AND HOLD MOISTURE. KEEP SKIN DRY AND PROTECT FROM FRICTION -MANAGE FRICTION/SHEAR/MOBILITY KEEP HOB AT THE LOWEST LEVEL OF ELEVATION NO MORE THAN 30 DEGREES UNLESS OTHERWISE CONTRAINDICATED USE LIFT SHEET OR TRANSFER DEVICE TO MOVE PATIENT AND PREVENT LATERAL SHEER. CONSIDER TRAPEZE IF APPROPRIATE PROTECT HEELS, ELBOWS BONY PROVENANCES WITH SKIN BERRIES OR FOAM DRESSING IF EXPOSED TO FRICTION OFFLOAD BILATERAL HEELS BY PLACING PILLOWS UNDER CALVES AT ALL TIMES, UNLESS OTHERWISE CONTRAINDICATED -PRESSURE REDISTRIBUTION SURFACE THERAPY CECI ISOFLEX KUSH MATTRESS -NUTRITION: PLEASE FOLLOW RD RECOMMENDATIONS AND OFFER NUTRITION SUPPLEMENTS IF ORDERED.
[2022-05-13] MEDS: SUMAtriptan succinate 50 MG TAB PO PRN (10:12)
[2022-05-13] MEDS ORDERED: METO25TA PO (10:20)
[2022-05-13] MEDS ORDERED: CLOP75TA55 PO (10:20)
[2022-05-13] MEDS ORDERED: ISOS30TE68 PO (10:20)
[2022-05-13] MEDS ORDERED: ALGINATE ROPE MC PRN (10:45)
[2022-05-13] MEDS: ONDANSETRON 4 MG/2 ML VIAL IVP PRN (12:24)
[2022-05-13] MEDS ORDERED: Z-GUARD PASTE TP SCH (13:00)
[2022-05-13 16:00] VITALS: BP 146/77
--- NOTE | 2022-05-13 17:00 | NUR ---
DC PLANNING PATIENT IS A 72 YEAR OLD FEMALE ADMITTED IN THE [facility]/ED ON 05/09/2022 DUE TO COMPLAINTS OF CHEST PAIN, PATIENT DESCRIBES LEFT-SIDED SHARP CONSTANT CHEST PAIN ASSOCIATED LIGHTHEADEDNESS, DIZZINESS, AND NAUSEA. PATIENT HAD MEDICAL HISTORY OF LUPUS, HYPERTENSION, HIGH CHOLESTEROL, COPD, DIABETES, HISTORY OF CVA, MULTIPLE TUMORS,AND BLADDER CANCER. JAYE MET WITH PATIENT AT BEDSIDE TO DISCUSS AND GATHER HER COLLATERAL INFORMATION. PATIENT WAS AWAKE AND ALERT ABLE TO PROVIDE HER INFORMATION, PATIENT REPORTED LIVING AT HOME WITH HER NEREIDA MILIAN IN [place]. PATIENT REPORTED HAVING LIMITED FAMILY SUPPORT HOWEVER, FEELING REALLY SUPPORTED BY HER WHO IS HER EMERGENCY CONTACT AND MEDICAL DESICION MAKER. PER PATIENT SHE HAS NO A.D. AND DECLINED INFORMATION FORMS PROVIDED BY JAYE. PATIENT REPORTED " MY WILL BE MAKING ALL DECISIONS FOR ME WHEN I AM NOT ABLE" PER PATIENT SHE HAS NO ISSUES WITH HER MEDICATIONS AND IS ABLE TO TAKE THEM AND GET THEM FROM THE [facility] IN [place] WHEN THE DR. MEDINA PRESCRIBES THEM TO HER. HOWEVER; PATIENT REPORTED THAT SHE HAD MISS AN APPOINTMENT WITH WITH PCP AND HAD NO MORE MEDICATION TO TAKE AND STARTED TO FEEL SICK, THAT IS WHY HER HAD TO CALL 911 SINCE SHE STARTED TO FEEL CHEST PAIN AND AMBULANCE TOOK HER TO ED. PER PATIENT SHE HAS A WHEELCHAIR AND A CANE AT HOME HER ONLY DME. WHEN DISCUSSING WITH PATIENT ABOUT DISCHARGE. JAYE SHARED AND DISCUSSED WITH PATIENT [facility]/MD RECOMMENDATIONS FOR SNF FOR SKILL. PATIENT AGREED AND STATED THAT SHE WILL GO TO SNF [facility] COME IN [place] BECAUSE HER DO NOT DRIVE AND SHE WANTS HIM TO BE ABLE TO COME VISIT HER THERE IN THE SNF. JAYE AGREED AND TOLD HER [facility] PATIENT WAS HAPPY TO KNOW THAT AND REPORTED THAT SHE WOULD LIKE TO GO BACK THERE. JAYE WILL FOLLOW UP NEEDED. JAYE ATTEMPTED TO CONTACT PATIENT'S ZAIRA MILIAN AT TO DISCUSS PATIENT INFORMATION AND STATUS UPDATED. PATIENT'S DID NOT ANSWER THE CALL AND JAYE LEFT HIM A VOICE MAIL MSG WITH DIRECT CONTACT INFORMATION AND REQUEST FOR A CALL BACK. JAYE FAXED PATIENT'S INFORMATION AND CLINICAL PACKET TO Mister Mario AT WITH COMPLETED CONFIRMATION. JAYE WILL FOLLOW UP NEEDED. JAYE CALLED JERI FROM [facility] AT TO CONFIRM SHE RECEIVED PATIENT'S REFERRAL AND CLINICALS. PER RICARDO SHE DID RECEIVED PACKET AND WAS REVIEWING PATIENT INFORMATION AND AGREED TO ACCEPT PATIENT. PER JERI PATIENT HAS BEEN ACCEPTED UNDER DR. BLUE TO ROOM 9-B AFTER 5:30PM. JAYE INFORMED JERI THAT TRANSPORTATION WILL BE ARRANGE FOR PATIENT TO BE COMMERCIAL SHRIMPING CAPTAIN AND [facility]RA WILL BE ENDORSE OF INFORMATION AND DC TIME. JERI AGREED AND ENDED THE CALL. SW CALL [facility]SP[facility] TO SET UP PATIENT'S DISCHARGE AND COMMERCIAL SHRIMPING CAPTAIN TIME. JAYE SPOKE TO FROYLAN WHO PROVIDE SW WITH RESERVATION # [id number] AND STATED THAT HE HAS ARRANGE WITH [facility] FOR PATIENT TO BE COMMERCIAL SHRIMPING CAPTAIN AT ABOUT 6:15 TO 6:30 PM SW THANK HIM FOR THE INFORMATION AND ENDED THE CALL. SW THEN CALL [facility]CI[facility] MALHOTRA AND ENDORSE ALL INFORMATION INCLUDING PATIENT COMMERCIAL SHRIMPING CAPTAIN TIME. SW WILL FOLLOW UP NEEDED.
[2022-05-13 17:44] VITALS: BP 146/77
--- NOTE | 2022-05-13 18:36 | NUR ---
DISCHARGE PATIENT TO [facility] W/ STABLE CONDITION. ENDORSE PATIENT TO NURSE [facility] NON-EMERGENCY MEDICAL TRANSPORTATION PICK PATIENT UP AFTER 1800. DISCHARGE INSTRUCTION GIVEN, DISCHARGE CONSENT SIGNED, IV ACCESS & WRIST BAND REMOVE. PATIENT LEFT FACILITY BEFORE 1630.
[2022-05-16] MEDS ORDERED: ALGINATE ROPE MC SCH (13:00)
== END 2022-05-13 18:30 | DRG 303 ==
LOC: MED 15:43 → EEVIPCON 17:59 → MTU 17:59 → MMU 20:33 → MTU 22:11
PROVIDERS: ADMIT Family Medicine; ATTEND Family Medicine
DX: I25.110 Atherosclerotic heart disease of native coronary artery with unstable angina pectoris (principal); E87.1 Hypo-osmolality and hyponatremia; I50.22 Chronic systolic (congestive) heart failure; E44.1 Mild protein-calorie malnutrition; Z68.1 Body mass index [BMI] 19.9 or less, adult; I11.0 Hypertensive heart disease with heart failure; D64.9 Anemia, unspecified; E83.42 Hypomagnesemia; E78.00 Pure hypercholesterolemia, unspecified; J44.9 Chronic obstructive pulmonary disease, unspecified; F20.9 Schizophrenia, unspecified; G43.909 Migraine, unspecified, not intractable, without status migrainosus; Z20.822 Contact with and (suspected) exposure to COVID-19; Z86.73 Personal history of transient ischemic attack (TIA), and cerebral infarction without residual deficits; Z85.51 Personal history of malignant neoplasm of bladder; Z88.0 Allergy status to penicillin; Z88.2 Allergy status to sulfonamides; Z79.899 Other long term (current) drug therapy
CPT/HCPCS: 36415; 71045; 71275; 80048; 80053; 82948; 83735; 83880; 84484; 85025; 85379; 85610; 85730; 87081; 93005; 96360; 99285; J1644; J1815; J2270; J2405; J3475; J7030; Q0092; Q9967